=== PATIENT | male | born 1970 | race Caucasian/White ===

== ENCOUNTER 2024-06-16 14:37 | Outpatient (CLI) | payer MEDICARE, MEDICAID ==
[~2024-06-16 14:37] MED LIST: ATOR20TA PO; BACL10TA PO; CHOL100046 PO; FING0.5C3 PO; NAPR-56 PO; PREG150C PO; fenofibrate
[2024-06-16 16:17] VITALS: PULSE 65; RESP 16; O2SAT 97
== END 2024-06-16 23:59 | disposition home or self-care (01) ==
LOC: RAD 14:37
DX: R05.3 Chronic cough (principal); J43.9 Emphysema, unspecified; F17.210 Nicotine dependence, cigarettes, uncomplicated
CPT/HCPCS: 71046; 71271; 94010; 94760